=== PATIENT | female | born 1965 | race Hispanic/Latino ===

== ENCOUNTER 2022-12-17 10:25 | Observation (INO) | payer BC ==
[~2022-12-17] VITALS: Ht 154.9 cm; Wt 58.1 kg
--- NOTE | 2022-12-17 13:10 | NUR ---
PT ARRIVED TO MS, RM 119 VIA STRETCHER. BEDSIDE REPORT RECIEVED FROM RAN PADRON. CAYDEN IN THE ROOM AT THIS TIME. AT BEDSIDE INTERPRET. ORIENTED TO CALL LIGHT, IN REACH. ASSESSMENT COMPLETE. ABD PAIN 3/10, TOLERABLE AT THIS TIME. HAS NAUSEA, BUT IS AWARE OF THE PRN [place] MEDICATION SCHEDULE. PT ABLE TO WALK TO THE BATHROOM, SBA, W/O DIFFICULTY. ABD TENDER WITH PALPATION, HYPOACTIVE IN ALL QUADRANTS. DENIES FURTHER NEEDS AT THIS TIME.
[2022-12-17 13:18] VITALS: BP 114/62
[2022-12-17] MEDS ORDERED: MULTI VITAMIN1 EACH PO (15:16)
--- NOTE | 2022-12-17 15:16 | NUR ---
MED REC COMPLETE
--- NOTE | 2022-12-17 15:49 | NUR ---
REPORT FROM Amy MACIAS RN. PATIENT LYING IN BED. C/O MINIMAL PAIN BUT REMAINS NAUSEATED AT THIS TIME.
--- NOTE | 2022-12-17 17:20 | NUR ---
Spoke with pt and her spouse. Pt has limited Faroese, but understands. Spouse is fluent. They live in [place] in a home with 2 steps. Pt is active and she does not believe she will have issues getting in or out of her home. She does not use any DME. Pt does the cooking, cleaning, and shopping. She has a 19 yo son that is currently at home. 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 They deny any needs. I did discuss with spouse FMLA and how to apply. He plans on taking his vacation time. Plan to dc tohome when pt is medially cleared. He denies any financial issues. They do get reduced school meals. He is aware of [employer] in [place].
--- NOTE | 2022-12-17 17:39 | NUR ---
patient and spouse instructed on pre-op wipe down, removal of jewelry, pants and underwear and need to change gown. Informed ok to leave socks on.
--- NOTE | 2022-12-17 17:55 | NUR ---
WIPE DOWN COMPLETED. TAKEN TO SURGERY BY SURGERY STAFF IN BED.
--- NOTE | 2022-12-17 19:47 | NUR ---
Received report from RAN Smith am, pt currently in surgery, did receive call from PACU Celestina, Case closing currently.
--- NOTE | 2022-12-17 20:03 | NUR ---
12/17/222002 Lisseth Ramsay 1957 PATIENT ARRIVES TO PACU UNRESPONSIVE TO VERBAL STIMULI. COARSE UPPER AIRWAY. CLEAR SECRETION SUCTION. RESP EVEN AND UNLABORED. O2 MASK AT 6 LITERS.
--- NOTE | 2022-12-17 20:30 | NUR ---
KOSOVAN SPEAKING PT ARRIVES FROM PACU WITH HOMERO/SUNDAR, RN'S FROM PACU, WELL PT ROMANIAN SPEAKING . DANA CONNORS, HAS 3 LAP SITES, COVERED WITH SS; UMBICAL SITE WITH SEROSANGUINEOUS DRAINAGE. QUESTIONS ASKED, TRANSLATED, PT RESPONDED. NO PAIN AT THIS TIME. SKIN WARM DRY. NO NAUSEA; VS COMPLETED, SCD'S IN PLACE CPOX IN PLACE WELL.
[2022-12-17 21:37] VITALS: BP 116/65
[2022-12-17 22:47] VITALS: BP 122/66
--- NOTE | 2022-12-17 22:47 | NUR ---
PT UP TO BAthroom to void. ambulated, washed face after. Back to bed, scd's in place, cpox in place. 2234 zofran given due to complaint of little nausea.
[2022-12-17 23:48] VITALS: BP 135/62
--- NOTE | 2022-12-17 23:49 | NUR ---
POST OP VS COMPLETED. PT STATES PAIN 2, WHICH HASN'T CHANGED IN THE HOUR. DENIES NAUSEA; ABD INCISION UNCHANGED SINCE RETURN TO THE FLOOR. VIA , PT DENIES PASSING GAS. ABDOMIN, SOFT, TENDER TO TOUCH. SATS REMAIN IN THE 90'S, RA CPOX.
--- NOTE | 2022-12-18 00:36 | NUR ---
Assisted patient to restroom. Walked slowly and steady. Plugged IV in and put SCDs back onto legs. Call light within reach. is at bedside in recliner. Nothing else needed at this time.
--- NOTE | 2022-12-18 01:00 | NUR ---
CHECKED ON PT, EYES CLOSED, RESP EVEN AND UNLABORED. REMAINS AT BEDSIDE.
[2022-12-18 03:21] VITALS: BP 116/70
--- NOTE | 2022-12-18 03:30 | NUR ---
REPORT RECEIVED FROM GABRIELA TONG, IN TO CHECK ON PT AND DO ASSESSMENT, PT IS AWAKE IN BED. AWAKE ALSO, HELPING TO ANSWER QUESTIONS. PT DENIES NEED FOR PAIN MEDICATION AT THIS TIME. IVF INFUSING AT 85ML/HR.
--- NOTE | 2022-12-18 04:30 | NUR ---
PT CONT TO SLEEP WITH EYES CLOSED, RESP EVEN AND UNLABORED.
[2022-12-18 06:19] VITALS: BP 116/63
--- NOTE | 2022-12-18 06:38 | NUR ---
PT AWAKE, C/O 4/10 ABDOMINAL PAIN, INCREASED PAIN WITH DEEP BREATHS. PERCOCET GIVEN FOR PAIN ALONG WITH SOME CRACKERS, TURKEY SANDWICH ORDERED FOR BREAKFAST, STATES PT IS VERY HUNGRY THIS MORNING.
[2022-12-18 10:03] VITALS: BP 111/57
--- NOTE | 2022-12-18 11:52 | NUR ---
Patient up walking with silo tender, tolerating well. Patient reports her pain is tolerable at this time. Lap sites are closed, lap sites cdi. Patient denies nausea. Call light within reach.
--- NOTE | 2022-12-18 12:09 | NUR ---
patient ambulated 1 long lap around med/surg floor. patient tolerated well w/sba. Pt back in room with family. Call light within reach.
--- NOTE | 2022-12-18 14:02 | NUR ---
INTO SEE PATIENT, FAMILY AT BEDSIDE. PATIENT STATES THEY ARE WAITING FOR DR. RODARTE TO SEE IF THE PATIENT CAN BE DISCHARGED. NO CONCERNS REGARDING DISCHARGE AT THIS TIME.
--- NOTE | 2022-12-18 14:23 | NUR ---
Patient reports feeling well this afternoon, no acute distress. Patient up to restroom at this time, 600ml clear yellow urine noted. Patient reports passing flatus today. No nausea this shift thus far. Toradol 30mg IV admin for 4/10 abdominal pain. Patient is hoping to discharge home today. Call light within reach.
[2022-12-18 14:34] VITALS: BP 120/62
[2022-12-18] MEDS ORDERED: ACETAMINOPHEN500 MG PO (14:37)
[2022-12-18] MEDS ORDERED: MOTRIN IB200 MG PO (14:38)
[2022-12-18] MEDS ORDERED: OXYCODONE-ACET1 EAC1 PO (14:38)
--- NOTE | 2022-12-19 11:21 | OR ---
[facility] [address], [place] [address] Signed DATE OF OPERATION: 12/17/2022 SURGEON: Sallie Rodarte MD PREOPERATIVE DIAGNOSIS: Acute calculous cholecystitis. POSTOPERATIVE DIAGNOSIS: Acute calculous cholecystitis. PROCEDURE: Laparoscopic cholecystectomy with intraoperative cholangiogram, prolonged complicated difficult. ANESTHESIA: General endotracheal, Melba Blanca, ASSEMBLER FINAL, and local 10 mL of 0.25% Marcaine with epinephrine. INDICATION: This 57-year-old woman is a patient of Dr. Ada Carroll. She presented to the emergency room today and she was evaluated by Dr. Chun with severe epigastric and right subcostal pain, which has been going on for at least five days. Lab studies showed normal liver enzymes. Overall, she has severe tenderness in the epigastric and right subcostal area and associated nausea and vomiting. Her symptoms have been unrelenting for the past five days. She has been fluid resuscitated, given intravenous antibiotics, and now to undergo cholecystectomy preferred by laparoscopic approach. She understands the risk of bleeding, infection, and perforation related to cholecystectomy and wished to proceed. FINDINGS: Indeed the gallbladder was quite severely inflamed. It was almost bilobulated. Ultimately, she was found to have an obstructing large stone and infundibulum of the gallbladder. Decompression of the gallbladder showed white bile (clear bile) consistent with longstanding obstruction of the cystic duct. Intraoperative cholangiogram, however, was normal. The liver was normal. The operation was performed without complication. DESCRIPTION OF PROCEDURE: The patient was brought to the operating room, given a general endotracheal anesthetic. A GlideScope was required for intubation as she had an "anterior" airway. The abdomen Electronically Signed By: SALLIE RODARTE MD 12/19/22 1121 PATIENT NAME: ERIN HODGES OPERATIVE REPORT DATE OF : 63 REPORT #: [id number] PHYSICIAN: SALLIE RODARTE MD PCP: ADA CARROLL MD REPORT IS CONFIDENTIAL AND NOT TO BE RELEASED WITHOUT AUTHORIZATION [facility] [address], [place] [address] Signed was prepared with a chlorhexidine solution and draped sterilely. Intraoperative administration of Ancef was undertaken. She had received a dose earlier in the day. Sequential compression device stockings were used. The abdomen was prepared with a chlorhexidine solution and draped sterilely. An infraumbilical incision was made using an open Rosetta cannula technique, pneumoperitoneum achieved to a level of 14 mmHg with carbon dioxide gas. Intra-abdominal inspection showed no signs of ascites or carcinomatosis. The gallbladder was quite intensely inflamed and erythematous. The liver was normal. Three additional trocars were placed in usual configuration in the subxiphoid, right midclavicular, and right anterior axillary line. The gallbladder was too tensely distended to grasp and on that basis was decompressed with a needle trocar device demonstrating white bile. Good decompression was noted. The puncture site was grasped and elevated cephalad. The gallbladder itself was almost a bilobed in its appearance due to scar tissue inflammation and so forth. Ultimately, the triangle of Calot was dissected free, ultimately identifying the cystic duct. The infundibulum had a lobular appearance in the inferior aspect of the cystic duct cephalad to this. The cystic duct was very carefully and fully dissected free identifying well nearby the common bile duct with avoidance of any injury to it. The impacted gallstone in the infundibulum and area of the cystic duct was milked in a retrograde fashion and ultimately a clip applied to the area. A transverse choledochotomy was made in the cystic duct. Egress of clear bile was noted. An Woodard type cholangiocatheter was used to provide intraoperative cholangiography, which showed free and rapid flow into the duodenum with no evidence of distal obstruction. Retrograde filling was ultimately accomplished showing no sign of proximal common hepatic duct anomaly. The catheter was removed and the cystic duct was triply clipped. Care was taken to assure there was no impingement on the common bile duct itself. The gallbladder was then dissected free in a retrograde fashion using electrocautery. The gallbladder was placed in an endobag and extracted through the infraumbilical port site without problem and extracted and passed for pathology. Examination of the gallbladder and its contents showed completely white pale mucosa and several oblong stones including the offending obstructing stone. There was no evidence of malignancy. Irrigation was undertaken in subhepatic space. Given the extent of complex dissection and somewhat intrahepatic position of the gallbladder itself. Tisseel fibrin glue was applied with aerosolizer to the hepatic bed and area of the infundibulum dissection. Excess irrigation fluid was suctioned free and the trocars were then removed under direct visualization showing no sign of bleeding. The trocars removed under direct visualization showing no bleeding. Infraumbilical fascial incision was reapproximated with interrupted 0 Vicryl suture. A 10 mL of 0.25% Marcaine with epinephrine was injected locally. The skin was then closed with interrupted 3-0 Vicryl and Steri-Strips applied. The patient tolerated the procedure well. Blood loss was less than 25 mL. Procedure was prolonged, complicated, and difficult due to the extent of the inflammation the gallbladder, requirement for decompression and somewhat appearance of the gallbladder itself. Electronically Signed By: SALLIE RODARTE MD 12/19/22 1121 PATIENT NAME: ERIN HODGES OPERATIVE REPORT DATE OF : 63 REPORT #: [id number] PHYSICIAN: SALLIE RODARTE MD PCP: ADA CARROLL MD REPORT IS CONFIDENTIAL AND NOT TO BE RELEASED WITHOUT AUTHORIZATION [address] [place], [place] [address] Signed MD GENA Ortega/MODL /[id number] cc: MD Ada Chen MD Copies: ANTON CHUN MD ~ Electronically Signed By: SALLIE RODARTE MD 12/19/22 1121 PATIENT NAME: ERIN HODGES OPERATIVE REPORT DATE OF : 63 REPORT #: [id number] PHYSICIAN: SALLIE RODARTE MD PCP: ADA CARROLL MD REPORT IS CONFIDENTIAL AND NOT TO BE RELEASED WITHOUT AUTHORIZATION
--- NOTE | 2022-12-19 11:21 | HP ---
[facility] [address], [place] [address] Signed ADMISSION DATE: 12/17/2022 REASON FOR ADMISSION: Acute calculous cholecystitis. HISTORY OF PRESENT ILLNESS: This is a 57-year-old woman, who speaks some Ukrainian, is accompanied by her who speaks Ukrainian very well. The patient has had five days of ongoing pain since Wednesday including upper and mid abdomen and right subcostal area. The patient was noted to have an ulcer approximately 20 years ago and she thought the pain is similar to this. She has tried fyor-whr-owjwdfr liquid medicines including Pepto-Bismol and liquid antacid without any benefit. She presented to the emergency room where she was thoroughly evaluated by Dr. Chun. This included a gallbladder ultrasound, which showed gallbladder distention, gallbladder wall thickening, and a 1.7 cm calculus lodged in the gallbladder neck. A positive sonographic Zimmer sign was also noted. She is admitted for further evaluation and care. PAST MEDICAL HISTORY: Relatively unremarkable other than a gastric ulcer issue in the past. She denies any prior abdominal surgery. REVIEW OF SYSTEMS: She denies any shortness of breath or actual chest pain. She does have epigastric and right subcostal pain and noted to have tenderness as well of course. She has had no diarrhea but has had vomiting at least once since admission to the floor. She underwent colonoscopy by mo on April 11, 2021, which was normal to the cecum. She had been seen by Dr. Gianna Pineda and was referred for screening colonoscopy at that time. SOCIAL HISTORY: She is and accompanied by her at this time. PHYSICAL EXAMINATION: GENERAL: A pleasant woman who does not look systemically toxic. VITAL SIGNS: Her temperature is 98.1, pulse 73, blood pressure 114/62, O2 saturation on room air is 95%. HEENT: Trachea is midline. Mucous membranes are relatively moist. Electronically Signed By: SALLIE RODARTE MD 12/19/22 1121 PATIENT NAME: ERIN HODGES HISTORY AND PHYSICAL DATE OF : 63 REPORT #: [id number] PHYSICIAN: SALLIE RODARTE MD PCP: REYES CARROLL MD REPORT IS CONFIDENTIAL AND NOT TO BE RELEASED WITHOUT AUTHORIZATION [facility] [address], [place] [address] Signed CHEST: Clear. HEART: Regular without murmur. ABDOMEN: Nondistended. She has vague tenderness in the subcostal area on the right side. EXTREMITIES: Show no clubbing, cyanosis, or edema. LABORATORY STUDIES: Show white count of 7.7, hematocrit of 41.8, platelets 302,000. Chem profile essentially normal. Alkaline phosphatase elevated at 146, lipase normal at 132. Beta HCG negative. Her gallbladder ultrasound results as previously noted, which includes at least one large gallstone wedged into the infundibulum. Review of the ultrasound on my behalf shows no parenchymal problem of the liver so far as can be told. ASSESSMENT: The patient has acute calculous cholecystitis. She has been admitted for fluid resuscitation, IV antibiotics, parenteral pain medication, anticipating probable cholecystectomy possibly today depending on response to therapy. The risk of bleeding, infection, bile duct injury, and so forth were reviewed with the patient and her who has been serving as the dominant form of communication for her. She seems to understand these issues related to operation and wished to proceed. Notably, the patient's has had cholecystectomy by a laparoscopic approach in the past and is well familiar with it and explained it well to his . MD GENA Ortega/KARIL /[id number] cc: Anthony Chun MD Copies: ANTHONY CHUN MD ~ Electronically Signed By: SALLIE RODARTE MD 12/19/22 1121 PATIENT NAME: ERIN HODGES HISTORY AND PHYSICAL DATE OF : 63 REPORT #: [id number] PHYSICIAN: SALLIE RODARTE MD PCP: REYES CARROLL MD REPORT IS CONFIDENTIAL AND NOT TO BE RELEASED WITHOUT AUTHORIZATION
--- NOTE | 2022-12-22 15:47 | PATH ---
[facility] [address] [place], [place] [address] Signed SPECIMEN(S): A GALLBLADDER AND STONES SPECIMEN SOURCE: A. GALLBLADDER AND STONES CLINICAL HISTORY: Acute calculus cholecystitis. FINAL PATHOLOGIC DIAGNOSIS: Gallbladder and stones: - Chronic calculous cholecystitis. - Pericystic lymph node with reactive features. JVR:marcio:C2NR MICROSCOPIC EXAMINATION: Histologic sections of all submitted blocks are examined by light microscopy. These findings, together with the gross examination, support the pathologic diagnosis. GROSS DESCRIPTION: The specimen, labeled and designated "Jono Cheng " and designated on the requisition "gallbladder and stones," is received in formalin and consists of Specimen: Previously opened gallbladder. Dimensions: 8.6 x 4.5 x 1.6 cm. Serosa: Violaceous and smooth and focally congested. Cystic Duct: Inked, contains calculi. Calculi: Multiple orange-brown and yellow calculi aggregate measurement 3.2 x 3.0 x 1.5 cm. Mucosa: [place] and finely granular. Wall thickness: 0.4 cm. Lymph node: One pink possible pericystic lymph node that is 0.7 cm in greatest dimension. Additional: None. Barytes Grinder sections are submitted in (A1). FB (under the direct supervision of a pathologist) The Gross Description was prepared using a voice recognition system. The report was reviewed for accuracy; however, sound-alike word errors, addition and/or deletions may occur. If there is any question about this report, please contact Client Services. PERFORMING LABORATORY: PATIENT NAME: ERIN CHENG PATHOLOGY DATE OF : 63 REPORT #: [id number] PHYSICIAN: DAVID COE PCP: REYES CARROLL MD REPORT IS CONFIDENTIAL AND NOT TO BE RELEASED WITHOUT AUTHORIZATION [address] [address] Signed The technical component was performed by [facility], [address] [place] [address] (CLIA# [id number]). Professional interpretation was performed by [facility] [address] [address] (CLIA#: [id number]). Diagnostician: Keyshawn Terrell MD Pathologist Electronically Signed 12/22/2022 Copies: ~ PATIENT NAME: ERIN CHENG PATHOLOGY DATE OF : 63 REPORT #: [id number] PHYSICIAN: DAVID COE PCP: REYES CARROLL MD REPORT IS CONFIDENTIAL AND NOT TO BE RELEASED WITHOUT AUTHORIZATION
== END 2022-12-18 15:15 | disposition home or self-care (01) ==
LOC: ED 10:25 → MS 10:27
PROVIDERS: ADMIT Surgery; ATTEND Surgery
PROC: BF121ZZ Fluoroscopy of Gallbladder using Low Osmolar Contrast (ICD-10-PCS; 2022-12-17)
PROC: 0FT44ZZ Resection of Gallbladder, Percutaneous Endoscopic Approach (ICD-10-PCS; principal; 2022-12-17 16:15)
DX: K80.12 Calculus of gallbladder with acute and chronic cholecystitis without obstruction (principal)
CPT/HCPCS: 00790; 36415; 74300; 76705; 80053; 83690; 84703; 85025; 94762; 96372; 96375; 96376; C9113; G0378; J0131; J0690; J1100; J1170; J1644; J1790; J1885; J2405; J2704; J3490; J7040; J7121; Q9967